=== PATIENT | male | born 1970 | race Caucasian/White ===

== ENCOUNTER → 2019-10-20 | Outpatient (CLI) | payer OTHER ==
[~2019-10-20] MED LIST: ASPI81TA50 PO; BUPIVACAINE MPF 0.25% 10 ML VIAL. ONE; GLUC100018 PO; IBUP200C9 PO; IOHEXOL 180 MG/ML 10 ML VIAL. ONE; MELO15TA23 PO; MULT-690 PO; methylPREDNISolone ACETATE 40 MG/ML VIAL. ONE; methylPREDNISolone ACETATE 80 MG/ML VIAL. ONE
--- NOTE | 2019-10-20 23:40 | PAIN ---
DATE OF SERVICE: 10/20/2019 INITIAL CONSULTATION FOR PAIN CLINIC CHIEF COMPLAINT: Right hip and lower extremity pain. HISTORY OF PRESENT ILLNESS: This is a 49-year-old male who presents with history of pain in the right hip radiating to the anterior thigh, anterior medial thigh and groin with walking, standing, changing positions. The patient reports this has been going on for many years. About 2 years ago, he did have an injection in his right hip, which helped the pain significantly. The patient reports that since that time, the pain has been fairly well controlled but still with some significant tenderness with walking, standing, it is becoming more noticeable over the past 2 months or so. The patient reports it is in right side only, radiating to groin, worse with standing, walking, climbing stairs, putting all of his weight on his right leg, exacerbated the pain fairly significantly. The patient reports no symptoms on the left side. No significant low back pain. The patient reports it is becoming more constant, shooting, radiating into the right leg, intermittent in intensity, worse with weightbearing, burning, sometimes aching as well. The patient rates his disability rating from 0-10, 10 being the worst, is a 7-8 with family home responsibilities, 6-7 with recreation, 7 with social activity, 8 with occupation, 9 with sexual behavior, 6 with self-care and 7 with life support activities. The patient has had some physical therapy in the past, which has been helpful, but nothing recently, also doing some exercises on his own, but it is becoming more difficult with walking, standing, especially on his job where he is on his feet quite a bit. He works as an customer insight analyst. The patient reports it awakens him from sleep at least 2-3 times a night, does not affect his bowel or bladder control, but does affect his ability to walk significantly. He is not using any assistive devices, however, to ambulate. The patient has tried Advil as well, which decreases the pain to a moderate extent, but only moderately. The patient had previous x-rays of his right hip showing mild right greater than left hip osteoarthritis and findings suggesting chronic hip impingement on the right side. PAST MEDICAL HISTORY: Significant for hearing loss and arthritis. PAST SURGICAL HISTORY: Previous surgeries include a left knee scope and a hernia repair in the past. Also, fracture of the thumb in 1970. CURRENT MEDICATIONS: Include meloxicam, aspirin, glucosamine, Advil and multivitamins. ALLERGIES: The patient has no known drug allergies. FAMILY HISTORY: Significant for cardiac disease and cancer. SOCIAL HISTORY: The patient does not drink alcohol, does not use any illegal, illicit or recreational drugs, does not smoke, is and lives with his spouse, has 2 children living at home, lives locally in [place], [place], and works as an customer insight analyst where he is on his feet most of his working day. PHYSICAL EXAMINATION: VITAL SIGNS: The patient's blood pressure is 157/86, pulse 71, respirations 18, temperature 97.6 degrees Fahrenheit, height is 5 feet 7 inches, weight is 212 pounds. GENERAL: The patient is awake, alert, oriented, appropriate, very pleasant demeanor. HEENT: Head shows normocephalic, atraumatic. Extraocular movements are intact and symmetrical. Oral cavity: Mucous membranes are moist and pink. Dentition is intact. NECK: Shows anterior throat supple without palpable lymphadenopathy noted. Swallow reflex symmetrical. CHEST: Shows normal on inspection. Breath sounds clear to auscultation bilaterally. HEART: Shows S1, S2 clear. No murmurs auscultated. ABDOMEN: Soft, nontender, nondistended. No palpable organomegaly is noted. No rebound or guarding demonstrated. BACK: Shows spine grossly in the midline, normal-appearing cervical lordotic curvature, thoracic kyphotic curvature and lumbar lordotic curvature. Lumbar paraspinous muscle shows symmetrical on inspection, on palpation shows some moderate tenderness diffusely, but only diffusely bilaterally without radiation. The patient shows good rotational motion of the lumbar spine, both laterally as well as extension and flexion without difficulty. EXTREMITIES: The patient's lower extremities show deep tendon reflexes 2+ in the patellar, 1+ tendo-calcaneus tendons. Motor exam is strong with 5/5 dorsiflexion, extension, quadriceps and hamstring flexion symmetrical. Peripheral pulses are 1+ posterior tibia. No peripheral edema is noted. The patient does have a positive Cleveland's maneuver on the right side only with external rotation and displacement of the right hip. Left side is negative. Gaenslen's maneuvers are negative bilaterally. Lower extremities are warm and dry to touch, equal in color and appearance. The patient is able to stand, stand on his toes without difficulty or loss of balance, walks with a significant limping gait; however, does appear to favor the right lower extremity, not using any assistive devices to ambulate. SKIN: Shows warm and dry, good turgor. No edema. No sores, rashes or bruising throughout. IMPRESSION: 1. This is a 49-year-old male with a history of increasing pain over the past 2 months, right hip and groin into the right lower extremity consistent with right hip pain. 2. X-rays of the right hip as noted. 3. Arthritis. PLAN: Options were discussed with the patient including conservative medical management managements, continued physical therapies, interventional techniques. He would like to pursue interventional techniques. We discussed a right intraarticular hip joint injection using description as well as anatomical models to describe the procedure. Risks were discussed including but not limited to bleeding, infection, possibility of intravascular injection sequelae, spread of local anesthetic and numbness, side effects of steroid medication and poor results regarding pain control. The patient understands and wished to proceed. The patient will return to the clinic in approximately 4 weeks for followup. He was counseled as to return appointment, activity level and side effects to be aware of. DIAGNOSES: Right hip joint pain with right primary osteoarthritis of the hip joint. PROCEDURE: Right intraarticular hip joint injection using C-arm fluoroscopic guidance under sterile prep and drape using local anesthetic. MEDICATION INJECTED: A total of 80 mg of Depo-Medrol plus 3 mL of 0.25% bupivacaine and 2 mL of contrast. CONDITION AT DISCHARGE: Stable. The patient tolerated the procedure well, had no complications. CANDIDO GAGE MD DR: MILTON/larissa JOB#: [id number] / [id number]
== END ==
LOC: PNCL 11:26
PROVIDERS: ATTEND Anesthesiology
DX: M16.11 Unilateral primary osteoarthritis, right hip (principal); Z87.39 Personal history of other diseases of the musculoskeletal system and connective tissue
CPT/HCPCS: 20610; 77002; J1040; J3490; Q9965; J1030